=== PATIENT | male | born 1980 | race Caucasian/White ===

== ENCOUNTER 2017-08-13 09:07 | Emergency (ER) | payer BC, OTHER ==
[2017-08-13 09:24] VITALS: BP 131/94
--- NOTE | 2017-08-13 10:35 | ED Physician Documentation ---
General Adult - HISTORIAN Historian: patient - HPI Stated Complaint: sinus congestion/pain, MATIAS Chief Complaint: General Adult Further Comments: yes (37 year old male patient presents with complaints of upper respiratory infection. Patient reports congestion, sore throat, fever and chills.) - ROS CONST: no problems EYES/ENT: sore throat, nasal drainage, nasal congestion. denies: problems with vision CVS/RESP: cough. denies: chest pain, shortness of breath GI/: none MS/SKIN/LYMPH: none NEURO/PSYCH: headache - PAST HX Past History: none Surgeries/Procedures: none Allergies/Adverse Reactions: Allergies Allergy/AdvReac Type Severity Reaction Status Date / Time No Known Allergies Allergy Verified 08/13/17 09:24 Home Medications: Ambulatory Orders Medication Instructions Recorded NK [NK] 08/13/17 - SOCIAL HX Smoking History: cigarettes - FAMILY HX Family History: No - VITAL SIGNS Vital Signs: Vital Signs Temp Pulse Resp BP Pulse Ox 98.7 F 86 18 131/94 97 08/13/17 09:18 08/13/17 09:18 08/13/17 09:18 08/13/17 09:18 08/13/17 09:18 - REVIEWED ASSESSMENTS Nursing Assessment Reviewed: Yes Vitals Reviewed: Yes ED Results Lab/Radiology - Lab Results Lab Results: Lab Results 08/13/17 08/13/17 09:45 09:45 Influenza Type A Ag Negative (NEGATIVE) Influenza Type B Ag Negative (NEGATIVE) Group A Strep Screen Negative (NEGATIVE) - Orders Orders: ED Orders Category Date Time Status INFLUENZA A&B Stat Lab 08/13/17 09:45 Completed Rapid Strep [GRP A STREP SCREEN] Stat Lab 08/13/17 09:45 Completed THROAT CULTURE Stat Lab 08/13/17 09:45 Received General Adult Physical Exam - PHYSICAL EXAM GENERAL APPEARANCE: mild distress EENT: eye inspection normal, ENT inspection normal, pharynx normal, no signs of dehydration, PATRICE, no nystagmus, TM's nml, other (no tenderness with palpation of sinuses) RESPIRATORY: no resp distress, chest non-tender, breath sounds normal CVS: reg rate & rhythm, heart sounds normal, equal pulses, no murmur, no gallop , PMI nml, no JVD, no friction rub, 24 SKIN: normal color, warm/dry, NR, INT, PAL, DR EXTREMITIES: non-tender, normal range of motion, no evidence of injury, no edema , J, BR[employer] NEURO: oriented X3, CN's nml as tested, motor nml, sensation nml, mood/affect nml Discharge Clincal Impression: Viral syndrome Referrals: Primary Doctor,No [Primary Care Provider] - 2 Days Additional Instructions: 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 You may want to try Vicks rub on your chest and/or feet. ( Caution: Dayquil and Nyquil contain 325mg of tyelnol/acetaminophen per tablespoon) Cough drops as needed for cough and sore throat. Increase your fluid intake juices, hot tea, non-caffeinated beverages Vitamin C may be helpful in decreasing the length of your cold. Use a humidifier in the room where you sleep. You can also sit in a steam filled bathroom 1-2 times a day. Tylenol every 4 hours 650mg -1000mg (do not exceed 4000mg in 24 hours) as needed for fever, pain and body aches. Alternate with Ibuprofen Ibuprofen 600-800mg every 6 hours as needed for fever, pain and body aches. See your primary care doctor if your symptoms become worse or do not improve in the next 2-3 days. Condition: Stable Disposition: 01 HOME, SELF-CARE Decision to Admit: NO Decision Time: 10:33
== END 2017-08-13 10:59 | disposition home or self-care (01) ==
LOC: SUPCPDRO 09:07 → ED 09:07
DX: B34.9 Viral infection, unspecified (principal)
CPT/HCPCS: 87070; 87400; 87880; 99282

== ENCOUNTER 2017-11-21 14:51 | Outpatient (CLI) | payer OTHER ==
[2017-11-21 15:33] LABS: eGFR (African) > 60; eGFR (Non-African) > 60
== END 2017-11-21 14:53 ==
LOC: LAB 14:51
PROVIDERS: ATTEND Physician Assistant
DX: I10 Essential (primary) hypertension (principal); Z13.6 Encounter for screening for cardiovascular disorders
CPT/HCPCS: 36415; 80053; 80061